=== PATIENT | male | born 1970 ===

== ENCOUNTER 2020-08-29 10:15 | Day surgery (SDC) | payer OTHER ==
[2020-08-29] MEDS ORDERED: NEXIUM 24HR20 MG PO (13:26)
== END 2020-08-29 15:05 | disposition home or self-care (01) ==
LOC: AMB-ENDOS 10:15
PROVIDERS: ATTEND Surgery
DX: D13.1 Benign neoplasm of stomach (principal); K44.9 Diaphragmatic hernia without obstruction or gangrene